=== PATIENT | male | born 1955 | race Caucasian/White ===

== ENCOUNTER 2021-11-26 13:33 | Emergency (ER) | payer OTHER ==
[~2021-11-26] VITALS: Ht 182.9 cm; Wt 123.4 kg
[~2021-11-26 13:33] MED LIST: AMARYL4 MG PO; ATORVASTATIN CA20 MG PO; CLOTRIMAZOLE-BE15 GM; GLUCOPHAGE1000 MG; GLUCOPHAGE500 MG PO; KEFLEX500 MG PO; LIPITOR20 MG PO; LISINOPRIL-HCT1 EAC1 PO; LISINOPRIL-HCT1 EACH
[2021-11-26] MEDS ORDERED: LISINOPRIL2.5 MG PO (13:48)
[2021-11-26] MEDS ORDERED: JANUMET XR 50-1 EACH PO (13:48)
[2021-11-26 15:17] LABS: ABSOLUTE EOSINOPHILS 0.1 thou/uL (0.0-0.7); ABSOLUTE LYMPHOCYTES 0.4 thou/uL (0.8-5.3); ABSOLUTE MONOCYTES 0.3 thou/uL (0.0-1.2); ABSOLUTE NEUTROPHILS 1.5 thou/uL (1.6-8.1); BASOPHILS 0.8 %; EOSINOPHILS 5.2 %; HEMATOCRIT 33.2 % (42.0-52.0); HEMOGLOBIN 11.6 gm/dL (14.0-18.0); LYMPHOCYTES 15.9 %; MCH 31.7 pg (26.0-34.0); MCHC 34.9 g/dL (28.0-37.0); MCV 90.8 fL (80.0-100.0); MONOCYTES 11.2 %; MPV 7.7 fl. (7.2-11.1); NUCLEATED RBCS 0 /100WBC; PLATELET COUNT* 75 thou/uL (150-400); POLYS 66.9 %; RBC 3.66 mil/uL (4.50-6.00); RDW-CV 14.3 % (10.5-14.5); WBC 2.3 thou/uL (4.0-11.0)
[2021-11-26 15:26] LABS: CALCIUM 8.8 mg/dL (8.5-10.1); POTASSIUM 4.1 mmol/L (3.5-5.1)
[2021-11-26] MEDS ORDERED: CLEOCIN HCL300 MG PO (15:31)
[2021-11-26 15:37] LABS: ALBUMIN 3.3 g/dL (3.4-5.0); TOTAL BILIRUBIN 2.1 mg/dL (<0.1-1.0); TOTAL PROTEIN 7.3 g/dL (6.4-8.2)
[2021-11-26 16:51] LABS: ESR (SEDRATE) 29 mm/hr (0-20)
[2021-11-26] MEDS ORDERED: CEPHALEXIN500 MG PO (16:59)
[2021-11-26 17:36] VITALS: BP 181/92
== END 2021-11-26 17:37 | disposition home or self-care (01) ==
LOC: M.ERS 13:33
PROVIDERS: Nurse Practitioner Family
DX: M71.22 Synovial cyst of popliteal space [Baker], left knee (principal); L03.116 Cellulitis of left lower limb; E11.9 Type 2 diabetes mellitus without complications; E66.9 Obesity, unspecified; I10 Essential (primary) hypertension; E78.00 Pure hypercholesterolemia, unspecified; Z90.49 Acquired absence of other specified parts of digestive tract; Z79.2 Long term (current) use of antibiotics; Z79.899 Other long term (current) drug therapy